=== PATIENT | male | born 1940 | race Caucasian/White ===

== ENCOUNTER 2017-12-20 17:51 | Inpatient (IN) | payer MEDICARE, OTHER ==
[~2017-12-20] VITALS: Ht 185.4 cm; Wt 146.0 kg
[~2017-12-20 17:51] MED LIST: ACET650T2 PO; HYT1T PO; LISI40TA4 PO
[2017-12-20] MEDS ORDERED: dexamethasone sod phosphate 10mg/ml inj IV STA (17:59)
[2017-12-20] MEDS ORDERED: levoFLOXACIN-Levaquin 750MG/D5 150 ML IV ONE (18:00)
[2017-12-20] MEDS ORDERED: ipratropium/albuterol 3ml nebule NEB ONE (18:00)
[2017-12-20] MEDS ORDERED: azithromycin 250mg tablet PO ONE (18:00)
[2017-12-20 18:48] LABS: BASOPHILS % (AUTO) 0.3 % (0-1); EOSINOPHILS % (AUTO) 0 % (0-6); HEMATOCRIT 45.4 % (42.0-52.0); HEMOGLOBIN 15.5 g/dl (14.0-17.9); LYMPHOCYTES # (AUTO) 0.7 X10'3 (1.1-4.8); LYMPHOCYTES % (AUTO) 17.7 % (21-51); MEAN CORPUSCULAR HEMOGLOBIN 32.9 PG (27.0-31.0); MEAN CORPUSCULAR HGB CONC 34.1 % (33.0-36.5); MEAN CORPUSCULAR VOLUME 96.5 FL (78-98); MEAN PLATELET VOLUME 7.3 FL (7.4-10.4); MONOCYTES # (AUTO) 0.8 X10'3 (0-0.9); MONOCYTES % (AUTO) 19.5 % (2-12); NEUTROPHILS # (AUTO) 2.5 X10'3 (1.8-7.7); NEUTROPHILS % (AUTO) 62.5 % (42-75); PLATELET COUNT 153 X10'3 (140-440); RED BLOOD COUNT 4.71 X10'6 (4.70-6.10); RED CELL DISTRIBUTION WIDTH 13.8 % (11.5-14.5)
[2017-12-20 19:00] LABS: D-DIMER 0.59 MG/L FEU (0-0.50); PARTIAL THROMBOPLASTIN TIME 31 SECONDS (22-32); PROTHROMBIN TIME 10.7 SECONDS (9.0-12.0)
[2017-12-20 19:10] LABS: ABG BASE EXCESS 1.2 mmol/L (-2.0-3.0); ABG HCO3 29.7 mmol/L (22.0-26.0); ABG PCO2 (T) 62.6 mmHg (35.0-48.0); ABG PH (T) 7.293 (7.350-7.450); ABG PO2 (T) 80.5 mmHg (83-108); ALLEN'S TEST Positive; FLOW 5 L/min; FMetHb 0.2 % (0.3-1.12); FO2Hb 93.9 % (94-100); PATIENT TEMPERATURE 36.8; RESPIRATORY RATE (OBSERVED) 18 b/min; TOTAL HEMOGLOBIN 16.1 G/dl (14.0-18.0)
[2017-12-20 19:13] LABS: ALANINE AMINOTRANSFERASE 24 U/L (12-78); ALBUMIN 3.5 G/DL (3.4-5.0); ALKALINE PHOSPHATASE 44 IU/L (46-116); ANION GAP 4 (8-16); ASPARTATE AMINO TRANSFERASE 25 U/L (10-37); BILIRUBIN,TOTAL 0.7 MG/DL (0.1-1.0); BLOOD UREA NITROGEN 23 MG/DL (7-18); BUN/CREATININE RATIO 14.4 (5.4-32.0); CALCIUM 8.1 MG/DL (8.5-10.1); CHLORIDE 99 MMOL/L (99-107); GLUCOSE 107 MG/DL (70-104); POTASSIUM 4.3 MMOL/L (3.5-5.1); SODIUM 133 MMOL/L (135-145); TOTAL CARBON DIOXIDE 30.1 MMOL/L (24-32); TOTAL PROTEIN 6.9 G/DL (6.4-8.2); eGFR 42 ML/MIN
[2017-12-20] MEDS: nitroGLYCERIN 1gm ointment UD TP ONE ×2 (20:38→20:45)
[2017-12-20] MEDS ORDERED: acetaminophen 325mg tablet PO PRN (20:50)
[2017-12-20] MEDS ORDERED: mag hydrox/Alum hydrox/simeth 30ml oral suspension PO PRN (20:50)
[2017-12-20] MEDS ORDERED: ondansetron/PF 4mg/2ml inj IV PRN (20:50)
[2017-12-20] MEDS ORDERED: ACETAMINOPHEN 650 MG PO SCH (21:00)
[2017-12-20] MEDS ORDERED: Terazosin 1mg capsule PO SCH (21:00)
[2017-12-20] MEDS ORDERED: oseltamivir phos 75mg capsule PO ONE (21:35)
[2017-12-20] MEDS: acetaminophen 325mg tablet PO SCH (21:52)
[2017-12-20] MEDS: normal saline 1000ml 1,000 ML IV SCH (21:52)
[2017-12-20 23:00] VITALS: BP 144/81
[2017-12-21 05:29] LABS: BASOPHILS % (AUTO) 0 % (0-1); EOSINOPHILS % (AUTO) 0 % (0-6); HEMATOCRIT 44.8 % (42.0-52.0); HEMOGLOBIN 15.4 g/dl (14.0-17.9); LYMPHOCYTES # (AUTO) 0.3 X10'3 (1.1-4.8); LYMPHOCYTES % (AUTO) 9.1 % (21-51); MEAN CORPUSCULAR HGB CONC 34.4 % (33.0-36.5); MEAN CORPUSCULAR VOLUME 96.2 FL (78-98); MEAN PLATELET VOLUME 7.5 FL (7.4-10.4); MONOCYTES # (AUTO) 0.2 X10'3 (0-0.9); MONOCYTES % (AUTO) 6.7 % (2-12); NEUTROPHILS # (AUTO) 2.8 X10'3 (1.8-7.7); NEUTROPHILS % (AUTO) 84.2 % (42-75); PLATELET COUNT 151 X10'3 (140-440); RED BLOOD COUNT 4.66 X10'6 (4.70-6.10); WHITE BLOOD COUNT 3.3 X10'3 (4.5-11.0)
[2017-12-21 05:47] LABS: ALANINE AMINOTRANSFERASE 25 U/L (12-78); ALBUMIN 3.3 G/DL (3.4-5.0); ALBUMIN/GLOBULIN RATIO 0.9 (1.1-1.5); ALKALINE PHOSPHATASE 44 IU/L (46-116); ANION GAP 7 (8-16); ASPARTATE AMINO TRANSFERASE 28 U/L (10-37); BILIRUBIN,TOTAL 0.5 MG/DL (0.1-1.0); BLOOD UREA NITROGEN 27 MG/DL (7-18); BUN/CREATININE RATIO 19.3 (5.4-32.0); CALCIUM 8.2 MG/DL (8.5-10.1); CHLORIDE 99 MMOL/L (99-107); GLUCOSE 151 MG/DL (70-104); POTASSIUM 4.8 MMOL/L (3.5-5.1); SODIUM 136 MMOL/L (135-145); TOTAL CARBON DIOXIDE 29.7 MMOL/L (24-32); TOTAL PROTEIN 6.9 G/DL (6.4-8.2); eGFR 49 ML/MIN
[2017-12-21 07:00] VITALS: BP 137/67
[2017-12-21] MEDS ORDERED: non-formulary drug (Lisinopril* 40 MG) PO SCH (08:00)
[2017-12-21] MEDS: cefTRIAXone 1g/NS 100ml IVPB 100 ML IV SCH (09:45)
[2017-12-21] MEDS: lisinopril 20mg tablet PO SCH (09:46)
[2017-12-21] MEDS: oseltamivir phos 75mg capsule PO SCH ×2 (09:46→21:16)
[2017-12-21] MEDS: acetaminophen 325mg tablet PO SCH ×4 (09:46→21:17)
[2017-12-21] MEDS: heparin, porcine 5000 units/ml vial SQ SCH ×2 (09:48→21:17)
[2017-12-21 11:30] VITALS: BP 123/61
[2017-12-21 19:30] VITALS: BP 105/67
[2017-12-21 21:40] VITALS: BP 120/74
[2017-12-21] MEDS: terazosin 5mg capsule PO SCH (21:40)
[2017-12-21 23:30] VITALS: BP 115/63
[2017-12-22 06:01] LABS: BASOPHILS % (AUTO) 0.3 % (0-1); EOSINOPHILS % (AUTO) 0 % (0-6); HEMATOCRIT 48.3 % (42.0-52.0); HEMOGLOBIN 16.1 g/dl (14.0-17.9); LYMPHOCYTES # (AUTO) 0.6 X10'3 (1.1-4.8); LYMPHOCYTES % (AUTO) 15.2 % (21-51); MEAN CORPUSCULAR HEMOGLOBIN 32.1 PG (27.0-31.0); MEAN CORPUSCULAR HGB CONC 33.3 % (33.0-36.5); MEAN CORPUSCULAR VOLUME 96.1 FL (78-98); MEAN PLATELET VOLUME 7.7 FL (7.4-10.4); MONOCYTES # (AUTO) 0.4 X10'3 (0-0.9); MONOCYTES % (AUTO) 11.1 % (2-12); NEUTROPHILS # (AUTO) 2.8 X10'3 (1.8-7.7); NEUTROPHILS % (AUTO) 73.4 % (42-75); PLATELET COUNT 165 X10'3 (140-440); RED BLOOD COUNT 5.03 X10'6 (4.70-6.10); RED CELL DISTRIBUTION WIDTH 14.1 % (11.5-14.5); WHITE BLOOD COUNT 3.8 X10'3 (4.5-11.0)
[2017-12-22 06:29] LABS: ANION GAP 6 (8-16); BLOOD UREA NITROGEN 30 MG/DL (7-18); CHLORIDE 98 MMOL/L (99-107); GLUCOSE 94 MG/DL (70-104); POTASSIUM 4.8 MMOL/L (3.5-5.1); SODIUM 136 MMOL/L (135-145)
[2017-12-22 06:30] LABS: ALANINE AMINOTRANSFERASE 32 U/L (12-78); ALBUMIN 3.7 G/DL (3.4-5.0); ALKALINE PHOSPHATASE 46 IU/L (46-116); ASPARTATE AMINO TRANSFERASE 31 U/L (10-37); BILIRUBIN,TOTAL 0.7 MG/DL (0.1-1.0); BUN/CREATININE RATIO 21.4 (5.4-32.0); CALCIUM 8.4 MG/DL (8.5-10.1); TOTAL PROTEIN 7.3 G/DL (6.4-8.2); eGFR 49 ML/MIN
[2017-12-22] MEDS ORDERED: LACTOBACILLUS RHAMNOSUS GG 15 billion unit sprinkle caps PO SCH (07:30)
[2017-12-22 07:57] VITALS: BP 125/67
[2017-12-22] MEDS: oseltamivir phos 75mg capsule PO SCH ×2 (08:06→21:04)
[2017-12-22] MEDS: cefTRIAXone 1g/NS 100ml IVPB 100 ML IV SCH (08:06)
[2017-12-22] MEDS: acetaminophen 325mg tablet PO SCH ×4 (08:06→21:05)
[2017-12-22] MEDS: lisinopril 20mg tablet PO SCH (08:07)
[2017-12-22] MEDS: heparin, porcine 5000 units/ml vial SQ SCH ×2 (08:07→21:04)
[2017-12-22] MEDS ORDERED: APIX5TAB3 (09:16)
[2017-12-22] MEDS ORDERED: NIFE60TA79 (09:16)
[2017-12-22 11:32] VITALS: BP 130/71
[2017-12-22] MEDS: lactobacillus rhamnosus 10,000 MMU CELLS/CAPSULE PO SCH (17:10)
[2017-12-22 20:00] VITALS: BP 125/74
[2017-12-22] MEDS: ipratropium/albuterol 3ml nebule NEB SCH ×2 (20:20→23:00)
[2017-12-22] MEDS: terazosin 5mg capsule PO SCH (21:05)
[2017-12-22] MEDS: normal saline 1000ml 1,000 ML IV SCH (23:38)
[2017-12-23] VITALS: BP 156/87
[2017-12-23] MEDS ORDERED: furosemide 10 MG/1 ML 10ml inj IV ONE (01:45)
[2017-12-23] MEDS: ipratropium/albuterol 3ml nebule NEB PRN ×2 (03:00→23:04)
[2017-12-23 05:49] LABS: BASOPHILS % (AUTO) 0 % (0-1); EOSINOPHILS % (AUTO) 0.2 % (0-6); HEMATOCRIT 46.7 % (42.0-52.0); HEMOGLOBIN 15.9 g/dl (14.0-17.9); LYMPHOCYTES # (AUTO) 0.7 X10'3 (1.1-4.8); LYMPHOCYTES % (AUTO) 20.7 % (21-51); MEAN CORPUSCULAR HEMOGLOBIN 32.8 PG (27.0-31.0); MEAN CORPUSCULAR VOLUME 96.4 FL (78-98); MEAN PLATELET VOLUME 7.8 FL (7.4-10.4); MONOCYTES # (AUTO) 0.6 X10'3 (0-0.9); MONOCYTES % (AUTO) 17.7 % (2-12); NEUTROPHILS % (AUTO) 61.4 % (42-75); PLATELET COUNT 152 X10'3 (140-440); RED BLOOD COUNT 4.85 X10'6 (4.70-6.10); RED CELL DISTRIBUTION WIDTH 13.8 % (11.5-14.5); WHITE BLOOD COUNT 3.3 X10'3 (4.5-11.0)
[2017-12-23 06:14] LABS: ALANINE AMINOTRANSFERASE 45 U/L (12-78); ALBUMIN 3.5 G/DL (3.4-5.0); ALKALINE PHOSPHATASE 44 IU/L (46-116); ANION GAP 4 (8-16); ASPARTATE AMINO TRANSFERASE 38 U/L (10-37); BILIRUBIN,TOTAL 0.7 MG/DL (0.1-1.0); BLOOD UREA NITROGEN 26 MG/DL (7-18); BUN/CREATININE RATIO 18.6 (5.4-32.0); CALCIUM 8.2 MG/DL (8.5-10.1); CHLORIDE 96 MMOL/L (99-107); GLUCOSE 110 MG/DL (70-104); POTASSIUM 4.5 MMOL/L (3.5-5.1); SODIUM 136 MMOL/L (135-145); TOTAL CARBON DIOXIDE 35.9 MMOL/L (24-32); eGFR 49 ML/MIN
[2017-12-23] MEDS: ipratropium/albuterol 3ml nebule NEB SCH ×4 (07:01→18:54)
[2017-12-23 07:39] VITALS: BP 135/95
[2017-12-23] MEDS: lactobacillus rhamnosus 10,000 MMU CELLS/CAPSULE PO SCH ×2 (09:24→17:30)
[2017-12-23] MEDS: acetaminophen 325mg tablet PO SCH ×4 (09:25→21:30)
[2017-12-23] MEDS: oseltamivir phos 75mg capsule PO SCH ×2 (09:26→21:27)
[2017-12-23] MEDS: lisinopril 20mg tablet PO SCH (09:26)
[2017-12-23] MEDS: heparin, porcine 5000 units/ml vial SQ SCH ×2 (09:27→21:30)
[2017-12-23] MEDS: cefTRIAXone 1g/NS 100ml IVPB 100 ML IV SCH (09:28)
[2017-12-23 11:54] VITALS: BP 133/68
[2017-12-23] MEDS ORDERED: CefTRIAXone 1 gm/50ml D5W ADV 50 ML IV SCH (13:03)
[2017-12-23 18:00] VITALS: BP 130/73
[2017-12-23] MEDS: furosemide 40mg/4ml inj IV SCH ×3 (18:05→21:19)
[2017-12-23 18:20] LABS: ABG BASE EXCESS 6.6 mmol/L (-2.0-3.0); ABG HCO3 36.5 mmol/L (22.0-26.0); ABG OXYGEN SATURATION 94.1 % (95-98); ABG PCO2 (T) 75.1 mmHg (35.0-48.0); ABG PH (T) 7.304 (7.350-7.450); ABG PO2 (T) 72.8 mmHg (83-108); ALLEN'S TEST Positive; FLOW 4 L/min; FMetHb 0.2 % (0.3-1.12); RESPIRATORY RATE (OBSERVED) 20 b/min; TOTAL HEMOGLOBIN 16.7 G/dl (14.0-18.0)
[2017-12-23] MEDS: terazosin 5mg capsule PO SCH (21:29)
[2017-12-24] VITALS: BP 152/81
[2017-12-24] MEDS: ipratropium/albuterol 3ml nebule NEB PRN (03:20)
[2017-12-24 05:10] LABS: BASOPHILS % (AUTO) 0.3 % (0-1); EOSINOPHILS % (AUTO) 0.7 % (0-6); HEMATOCRIT 46.7 % (42.0-52.0); HEMOGLOBIN 15.9 g/dl (14.0-17.9); LYMPHOCYTES % (AUTO) 30.6 % (21-51); MEAN CORPUSCULAR HEMOGLOBIN 32.8 PG (27.0-31.0); MEAN CORPUSCULAR HGB CONC 34.1 % (33.0-36.5); MEAN CORPUSCULAR VOLUME 96.1 FL (78-98); MEAN PLATELET VOLUME 7.8 FL (7.4-10.4); MONOCYTES # (AUTO) 0.6 X10'3 (0-0.9); MONOCYTES % (AUTO) 17.4 % (2-12); NEUTROPHILS # (AUTO) 1.6 X10'3 (1.8-7.7); PLATELET COUNT 149 X10'3 (140-440); RED BLOOD COUNT 4.86 X10'6 (4.70-6.10); RED CELL DISTRIBUTION WIDTH 13.7 % (11.5-14.5); WHITE BLOOD COUNT 3.2 X10'3 (4.5-11.0)
[2017-12-24 06:01] LABS: ALANINE AMINOTRANSFERASE 43 U/L (12-78); ALBUMIN 3.4 G/DL (3.4-5.0); ALKALINE PHOSPHATASE 41 IU/L (46-116); ANION GAP 3 (8-16); ASPARTATE AMINO TRANSFERASE 30 U/L (10-37); BILIRUBIN,TOTAL 0.8 MG/DL (0.1-1.0); BLOOD UREA NITROGEN 23 MG/DL (7-18); BUN/CREATININE RATIO 19.2 (5.4-32.0); CALCIUM 8.5 MG/DL (8.5-10.1); CHLORIDE 97 MMOL/L (99-107); GLUCOSE 104 MG/DL (70-104); POTASSIUM 4.1 MMOL/L (3.5-5.1); SODIUM 139 MMOL/L (135-145); TOTAL PROTEIN 6.8 G/DL (6.4-8.2); eGFR 59 ML/MIN
[2017-12-24] MEDS: ipratropium/albuterol 3ml nebule NEB SCH ×4 (06:33→19:36)
[2017-12-24 06:51] LABS: ABG BASE EXCESS 11.6 mmol/L (-2.0-3.0); ABG HCO3 41.7 mmol/L (22.0-26.0); ABG OXYGEN SATURATION 89.2 % (95-98); ABG PH (T) 7.342 (7.350-7.450); ABG PO2 (T) 56.1 mmHg (83-108); ALLEN'S TEST Positive; FCOHb 1.2 % (0.5-1.5); FMetHb 0.1 % (0.3-1.12); MINUTE VOLUME 15 L/min; PATIENT TEMPERATURE 37.3; RESPIRATORY RATE 16 b/min; RESPIRATORY RATE (OBSERVED) 23 b/min; TIDAL VOLUME 804 mL; TOTAL HEMOGLOBIN 16.8 G/dl (14.0-18.0)
[2017-12-24 07:57] VITALS: BP 145/97
[2017-12-24] MEDS: furosemide 40mg/4ml inj IV SCH ×3 (08:00→20:00)
[2017-12-24] MEDS: heparin, porcine 5000 units/ml vial SQ SCH ×2 (08:33→20:00)
[2017-12-24] MEDS: acetaminophen 325mg tablet PO SCH ×4 (08:34→21:09)
[2017-12-24] MEDS: oseltamivir phos 75mg capsule PO SCH ×2 (08:34→20:00)
[2017-12-24] MEDS: CefTRIAXone/D5W-Rocephin 1gm 50 ML IV SCH (08:34)
[2017-12-24] MEDS: lisinopril 20mg tablet PO SCH (08:34)
[2017-12-24] MEDS ORDERED: methylPREDNISolone sod succ 125mg/2ml vial IV ONE (10:15)
[2017-12-24 11:00] VITALS: BP 123/81
[2017-12-24] MEDS: lactobacillus rhamnosus 10,000 MMU CELLS/CAPSULE PO SCH ×2 (11:00→17:04)
[2017-12-24] MEDS: methylPREDNISolone sod succ 125mg/2ml vial IV SCH ×2 (14:21→20:00)
[2017-12-24 15:00] VITALS: BP 147/98
[2017-12-24 19:00] VITALS: BP 130/74
[2017-12-24] MEDS: nystatin 15 GM powder TP SCH (20:00)
[2017-12-24] MEDS: terazosin 5mg capsule PO SCH (21:09)
[2017-12-24 23:00] VITALS: BP 91/63
[2017-12-25] MEDS: methylPREDNISolone sod succ 125mg/2ml vial IV SCH ×4 (02:00→21:34)
[2017-12-25 03:00] VITALS: BP 142/84
[2017-12-25 05:24] LABS: HEMATOCRIT 48.7 % (42.0-52.0); HEMOGLOBIN 16.9 g/dl (14.0-17.9); MEAN CORPUSCULAR VOLUME 95.1 FL (78-98); RED BLOOD COUNT 5.12 X10'6 (4.70-6.10); WHITE BLOOD COUNT 3.6 X10'3 (4.5-11.0)
[2017-12-25 05:25] LABS: BASOPHILS % (AUTO) 0.1 % (0-1); EOSINOPHILS % (AUTO) 0 % (0-6); LYMPHOCYTES # (AUTO) 0.6 X10'3 (1.1-4.8); LYMPHOCYTES % (AUTO) 16.2 % (21-51); MEAN CORPUSCULAR HEMOGLOBIN 32.9 PG (27.0-31.0); MEAN CORPUSCULAR HGB CONC 34.6 % (33.0-36.5); MEAN PLATELET VOLUME 7.8 FL (7.4-10.4); MONOCYTES # (AUTO) 0.1 X10'3 (0-0.9); MONOCYTES % (AUTO) 3.7 % (2-12); NEUTROPHILS # (AUTO) 2.8 X10'3 (1.8-7.7); PLATELET COUNT 156 X10'3 (140-440); RED CELL DISTRIBUTION WIDTH 13.2 % (11.5-14.5)
[2017-12-25 06:04] LABS: ALANINE AMINOTRANSFERASE 45 U/L (12-78); ALBUMIN 3.5 G/DL (3.4-5.0); ALKALINE PHOSPHATASE 42 IU/L (46-116); ANION GAP 4 (8-16); ASPARTATE AMINO TRANSFERASE 25 U/L (10-37); BILIRUBIN,TOTAL 0.9 MG/DL (0.1-1.0); BLOOD UREA NITROGEN 27 MG/DL (7-18); BUN/CREATININE RATIO 22.5 (5.4-32.0); CALCIUM 8.9 MG/DL (8.5-10.1); CHLORIDE 96 MMOL/L (99-107); GLUCOSE 143 MG/DL (70-104); POTASSIUM 3.9 MMOL/L (3.5-5.1); SODIUM 139 MMOL/L (135-145); TOTAL CARBON DIOXIDE 39.3 MMOL/L (24-32); eGFR 59 ML/MIN
[2017-12-25 06:35] VITALS: BP 131/96
[2017-12-25] MEDS: ipratropium/albuterol 3ml nebule NEB SCH ×5 (07:12→23:15)
[2017-12-25] MEDS: acetaminophen 325mg tablet PO SCH ×4 (08:00→21:35)
[2017-12-25] MEDS: furosemide 40mg/4ml inj IV SCH ×2 (09:20→21:35)
[2017-12-25] MEDS: lisinopril 20mg tablet PO SCH (09:21)
[2017-12-25] MEDS: lactobacillus rhamnosus 10,000 MMU CELLS/CAPSULE PO SCH ×2 (09:21→17:08)
[2017-12-25] MEDS: CefTRIAXone/D5W-Rocephin 1gm 50 ML IV SCH (09:21)
[2017-12-25] MEDS: nystatin 15 GM powder TP SCH ×2 (09:22→21:35)
[2017-12-25] MEDS: heparin, porcine 5000 units/ml vial SQ SCH ×2 (09:22→21:35)
[2017-12-25] MEDS: oseltamivir phos 75mg capsule PO SCH ×2 (09:36→21:34)
[2017-12-25 11:16] LABS: ABG BASE EXCESS 12.7 mmol/L (-2.0-3.0); ABG HCO3 39.1 mmol/L (22.0-26.0); ABG OXYGEN SATURATION 90.3 % (95-98); ABG PCO2 (T) 54.2 mmHg (35.0-48.0); ABG PH (T) 7.476 (7.350-7.450); ALLEN'S TEST Positive; FCOHb 0.3 % (0.5-1.5); FMetHb 0.1 % (0.3-1.12); FO2Hb 89.9 % (94-100); MINUTE VOLUME 24 L/min; RESPIRATORY RATE 18 b/min; RESPIRATORY RATE (OBSERVED) 20 b/min; TOTAL HEMOGLOBIN 17.5 G/dl (14.0-18.0)
[2017-12-25 19:00] VITALS: BP 116/66
[2017-12-25] MEDS: terazosin 5mg capsule PO SCH (21:34)
[2017-12-25 23:00] VITALS: BP 116/69
[2017-12-26 03:00] VITALS: BP 129/72
[2017-12-26] MEDS: methylPREDNISolone sod succ 125mg/2ml vial IV SCH ×4 (03:23→20:07)
[2017-12-26 06:14] LABS: BASOPHILS % (AUTO) 0 % (0-1); EOSINOPHILS % (AUTO) 0.2 % (0-6); HEMATOCRIT 49.1 % (42.0-52.0); LYMPHOCYTES # (AUTO) 0.4 X10'3 (1.1-4.8); LYMPHOCYTES % (AUTO) 6.8 % (21-51); MEAN CORPUSCULAR HGB CONC 34.5 % (33.0-36.5); MEAN CORPUSCULAR VOLUME 95.6 FL (78-98); MEAN PLATELET VOLUME 8.4 FL (7.4-10.4); MONOCYTES # (AUTO) 0.2 X10'3 (0-0.9); MONOCYTES % (AUTO) 3.5 % (2-12); NEUTROPHILS # (AUTO) 4.8 X10'3 (1.8-7.7); NEUTROPHILS % (AUTO) 89.5 % (42-75); PLATELET COUNT 164 X10'3 (140-440); RED BLOOD COUNT 5.14 X10'6 (4.70-6.10); RED CELL DISTRIBUTION WIDTH 13.2 % (11.5-14.5); WHITE BLOOD COUNT 5.4 X10'3 (4.5-11.0)
[2017-12-26 06:35] VITALS: BP 129/85
[2017-12-26 06:52] LABS: ALANINE AMINOTRANSFERASE 39 U/L (12-78); ALBUMIN 3.5 G/DL (3.4-5.0); ALKALINE PHOSPHATASE 39 IU/L (46-116); ANION GAP 6 (8-16); ASPARTATE AMINO TRANSFERASE 23 U/L (10-37); BILIRUBIN,TOTAL 0.8 MG/DL (0.1-1.0); BLOOD UREA NITROGEN 34 MG/DL (7-18); BUN/CREATININE RATIO 24.3 (5.4-32.0); CALCIUM 8.6 MG/DL (8.5-10.1); CHLORIDE 95 MMOL/L (99-107); GLUCOSE 170 MG/DL (70-104); POTASSIUM 3.6 MMOL/L (3.5-5.1); SODIUM 141 MMOL/L (135-145); eGFR 49 ML/MIN
[2017-12-26 06:56] LABS: TOTAL CARBON DIOXIDE 40.4 MMOL/L (24-32)
[2017-12-26] MEDS: lactobacillus rhamnosus 10,000 MMU CELLS/CAPSULE PO SCH ×2 (07:30→17:39)
[2017-12-26] MEDS: ipratropium/albuterol 3ml nebule NEB SCH ×5 (07:30→23:25)
[2017-12-26] MEDS: lisinopril 20mg tablet PO SCH (08:00)
[2017-12-26] MEDS: nystatin 15 GM powder TP SCH ×2 (08:00→20:09)
[2017-12-26] MEDS: CefTRIAXone/D5W-Rocephin 1gm 50 ML IV SCH (08:00)
[2017-12-26] MEDS: acetaminophen 325mg tablet PO SCH ×4 (08:00→20:08)
[2017-12-26] MEDS: heparin, porcine 5000 units/ml vial SQ SCH ×2 (08:00→20:08)
[2017-12-26 13:21] LABS: ABG BASE EXCESS 14.1 mmol/L (-2.0-3.0); ABG HCO3 39.2 mmol/L (22.0-26.0); ABG PCO2 (T) 47.6 mmHg (35.0-48.0); ABG PH (T) 7.533 (7.350-7.450); ABG PO2 (T) 84.7 mmHg (83-108); ALLEN'S TEST Positive; FCOHb 0.3 % (0.5-1.5); FLOW 5 L/min; FMetHb 0.2 % (0.3-1.12); FO2Hb 96.5 % (94-100); RESPIRATORY RATE (OBSERVED) 18 b/min; TOTAL HEMOGLOBIN 17.8 G/dl (14.0-18.0)
[2017-12-26] MEDS: magnesium hydroxide 30ml (MOM) UD suspension PO PRN (17:38)
[2017-12-26 19:00] VITALS: BP 125/77
[2017-12-26] MEDS: terazosin 5mg capsule PO SCH (20:08)
[2017-12-26 23:00] VITALS: BP 127/82
[2017-12-27] MEDS: methylPREDNISolone sod succ 125mg/2ml vial IV SCH ×4 (02:10→20:12)
[2017-12-27 03:00] VITALS: BP 132/78
[2017-12-27 06:00] VITALS: BP 142/80
[2017-12-27 06:45] LABS: BASOPHILS % (AUTO) 0 % (0-1); EOSINOPHILS # (AUTO) 0.1 X10'3 (0-0.9); EOSINOPHILS % (AUTO) 0.7 % (0-6); HEMATOCRIT 48.3 % (42.0-52.0); HEMOGLOBIN 16.6 g/dl (14.0-17.9); LYMPHOCYTES # (AUTO) 0.5 X10'3 (1.1-4.8); LYMPHOCYTES % (AUTO) 5.8 % (21-51); MEAN CORPUSCULAR HEMOGLOBIN 32.8 PG (27.0-31.0); MEAN CORPUSCULAR HGB CONC 34.4 % (33.0-36.5); MEAN CORPUSCULAR VOLUME 95.2 FL (78-98); MEAN PLATELET VOLUME 7.8 FL (7.4-10.4); MONOCYTES # (AUTO) 0.2 X10'3 (0-0.9); NEUTROPHILS # (AUTO) 7.2 X10'3 (1.8-7.7); NEUTROPHILS % (AUTO) 90.5 % (42-75); PLATELET COUNT 176 X10'3 (140-440); RED BLOOD COUNT 5.08 X10'6 (4.70-6.10); RED CELL DISTRIBUTION WIDTH 13.7 % (11.5-14.5); WHITE BLOOD COUNT 7.9 X10'3 (4.5-11.0)
[2017-12-27] MEDS: ipratropium/albuterol 3ml nebule NEB SCH ×5 (07:03→23:21)
[2017-12-27 07:41] LABS: ALANINE AMINOTRANSFERASE 37 U/L (12-78); ALBUMIN 3.4 G/DL (3.4-5.0); ALKALINE PHOSPHATASE 35 IU/L (46-116); ANION GAP 4 (8-16); ASPARTATE AMINO TRANSFERASE 20 U/L (10-37); BILIRUBIN,TOTAL 0.9 MG/DL (0.1-1.0); BLOOD UREA NITROGEN 44 MG/DL (7-18); BUN/CREATININE RATIO 29.3 (5.4-32.0); CALCIUM 8.7 MG/DL (8.5-10.1); CHLORIDE 95 MMOL/L (99-107); GLUCOSE 177 MG/DL (70-104); POTASSIUM 3.7 MMOL/L (3.5-5.1); SODIUM 138 MMOL/L (135-145); TOTAL CARBON DIOXIDE 39.1 MMOL/L (24-32); TOTAL PROTEIN 6.8 G/DL (6.4-8.2); eGFR 46 ML/MIN
[2017-12-27] MEDS: nystatin 15 GM powder TP SCH ×2 (08:00→20:12)
[2017-12-27] MEDS: CefTRIAXone/D5W-Rocephin 1gm 50 ML IV SCH (09:07)
[2017-12-27] MEDS: heparin, porcine 5000 units/ml vial SQ SCH ×2 (09:07→20:12)
[2017-12-27] MEDS: furosemide 40mg/4ml inj IV SCH (09:07)
[2017-12-27] MEDS: lactobacillus rhamnosus 10,000 MMU CELLS/CAPSULE PO SCH ×2 (09:08→17:47)
[2017-12-27] MEDS: lisinopril 20mg tablet PO SCH (09:08)
[2017-12-27] MEDS: acetaminophen 325mg tablet PO SCH ×4 (09:09→21:00)
[2017-12-27 11:00] VITALS: BP 116/74
[2017-12-27 15:00] VITALS: BP 127/82
[2017-12-27 18:30] VITALS: BP 99/62
[2017-12-27] MEDS: magnesium hydroxide 30ml (MOM) UD suspension PO PRN (20:12)
[2017-12-27] MEDS: terazosin 5mg capsule PO SCH (20:41)
[2017-12-27 23:00] VITALS: BP 124/65
[2017-12-28] MEDS: methylPREDNISolone sod succ 125mg/2ml vial IV SCH ×2 (02:17→07:59)
[2017-12-28 03:00] VITALS: BP 109/57
[2017-12-28 06:00] VITALS: BP 141/85
[2017-12-28 06:06] LABS: BASOPHILS % (AUTO) 0 % (0-1); EOSINOPHILS # (AUTO) 0.1 X10'3 (0-0.9); EOSINOPHILS % (AUTO) 0.9 % (0-6); HEMATOCRIT 50.4 % (42.0-52.0); HEMOGLOBIN 17.1 g/dl (14.0-17.9); LYMPHOCYTES # (AUTO) 0.4 X10'3 (1.1-4.8); LYMPHOCYTES % (AUTO) 5.4 % (21-51); MEAN CORPUSCULAR HEMOGLOBIN 32.6 PG (27.0-31.0); MEAN CORPUSCULAR VOLUME 95.7 FL (78-98); MEAN PLATELET VOLUME 8.4 FL (7.4-10.4); MONOCYTES # (AUTO) 0.3 X10'3 (0-0.9); MONOCYTES % (AUTO) 3.7 % (2-12); NEUTROPHILS # (AUTO) 7.3 X10'3 (1.8-7.7); PLATELET COUNT 156 X10'3 (140-440); RED BLOOD COUNT 5.26 X10'6 (4.70-6.10); RED CELL DISTRIBUTION WIDTH 13.4 % (11.5-14.5); WHITE BLOOD COUNT 8.1 X10'3 (4.5-11.0)
[2017-12-28 06:48] LABS: ALANINE AMINOTRANSFERASE 48 U/L (12-78); ALBUMIN 3.4 G/DL (3.4-5.0); ALBUMIN/GLOBULIN RATIO 1.1 (1.1-1.5); ALKALINE PHOSPHATASE 35 IU/L (46-116); ANION GAP 2 (8-16); ASPARTATE AMINO TRANSFERASE 22 U/L (10-37); BILIRUBIN,TOTAL 0.9 MG/DL (0.1-1.0); BLOOD UREA NITROGEN 43 MG/DL (7-18); BUN/CREATININE RATIO 33.1 (5.4-32.0); CALCIUM 8.6 MG/DL (8.5-10.1); CHLORIDE 97 MMOL/L (99-107); GLUCOSE 182 MG/DL (70-104); POTASSIUM 3.9 MMOL/L (3.5-5.1); SODIUM 139 MMOL/L (135-145); TOTAL CARBON DIOXIDE 39.7 MMOL/L (24-32); TOTAL PROTEIN 6.6 G/DL (6.4-8.2); eGFR 54 ML/MIN
[2017-12-28] MEDS: magnesium hydroxide 30ml (MOM) UD suspension PO PRN (07:58)
[2017-12-28] MEDS: furosemide 40mg/4ml inj IV SCH (07:59)
[2017-12-28] MEDS: lactobacillus rhamnosus 10,000 MMU CELLS/CAPSULE PO SCH (07:59)
[2017-12-28] MEDS: heparin, porcine 5000 units/ml vial SQ SCH (07:59)
[2017-12-28] MEDS: acetaminophen 325mg tablet PO SCH (08:00)
[2017-12-28] MEDS: lisinopril 20mg tablet PO SCH (08:00)
[2017-12-28] MEDS: nystatin 15 GM powder TP SCH (08:00)
[2017-12-28] MEDS: CefTRIAXone/D5W-Rocephin 1gm 50 ML IV SCH (08:00)
[2017-12-28] MEDS: ipratropium/albuterol 3ml nebule NEB SCH (08:15)
[2017-12-28 11:00] VITALS: BP 96/53
== END 2017-12-28 12:25 | DRG 682 ==
LOC: ER 17:52 → ED HOLD 20:48 → SUR 3N 23:00 → PCU 3S 12-24 10:05
PROVIDERS: ADMIT Internal Medicine; ATTEND Family Medicine
PROC: CB121ZZ Planar Nuclear Medicine Imaging of Lungs and Bronchi using Technetium 99m (Tc-99m) (ICD-10-PCS; principal; 2017-12-21)
PROC: 5A09457 Assistance with Respiratory Ventilation, 24-96 Consecutive Hours, Continuous Positive Airway Pressure (ICD-10-PCS; 2017-12-23)
PROC: 5A09357 Assistance with Respiratory Ventilation, Less than 24 Consecutive Hours, Continuous Positive Airway Pressure (ICD-10-PCS; 2017-12-26)
DX: N17.0 Acute kidney failure with tubular necrosis (principal); J18.1 Lobar pneumonia, unspecified organism; E87.4 Mixed disorder of acid-base balance; I50.31 Acute diastolic (congestive) heart failure; J96.01 Acute respiratory failure with hypoxia; J96.02 Acute respiratory failure with hypercapnia; I13.0 Hypertensive heart and chronic kidney disease with heart failure and stage 1 through stage 4 chronic kidney disease, or unspecified chronic kidney disease; I48.91 Unspecified atrial fibrillation; Z68.41 Body mass index [BMI] 40.0-44.9, adult; E87.1 Hypo-osmolality and hyponatremia; J10.1 Influenza due to other identified influenza virus with other respiratory manifestations; E66.01 Morbid (severe) obesity due to excess calories; N18.9 Chronic kidney disease, unspecified; G47.30 Sleep apnea, unspecified; N40.0 Benign prostatic hyperplasia without lower urinary tract symptoms; Z79.899 Other long term (current) drug therapy; Z87.891 Personal history of nicotine dependence
CPT/HCPCS: 36415; 36600; 71045; 78582; 80053; 82803; 83735; 83880; 84145; 84439; 84443; 84484; 85018; 85025; 85379; 85610; 85730; 87040; 87070; 87502; 87503; 93005; 93306; 93970; 94640; 94660; 94760; 96365; 96368; 96375; 97116; 97161; 97530; 99291; A9539; A9540; J0696; J1100; J1644; J1940; J1956; J2930; J7030